=== PATIENT | male | born 1980 | race Caucasian/White ===

== ENCOUNTER 2020-02-18 11:57 | Observation (INO) | payer SELFPAY ==
[~2020-02-18] VITALS: Ht 175.3 cm; Wt 90.7 kg
[~2020-02-18 11:57] MED LIST: ATOR40TA PO; OMEP20ER PO
[2020-02-18 12:55] LABS: LYMPHOCYTES ABSOLUTE AUTO 0.57 K/mm3 (0.84-5.20); RDW Standard Deviation 36.9 fL (35.1-46.3)
[2020-02-18 13:05] LABS: BASOPHILS ABSOLUTE AUTO 0.03 K/mm3 (0.00-0.23); BASOPHILS PERCENT AUTO 0 % (0-2); EOSINOPHILS PERCENT AUTO 0 % (0-6); Hematocrit 42.1 % (37.0-53.0); Hemoglobin 14.8 g/dL (13.5-17.5); IMMATURE GRAN ABSOLUTE AUTO 0.05 K/mm3 (0.00-0.10); IMMATURE GRAN PERCENT AUTO 1 % (0-1); LYMPHOCYTES PERCENT AUTO 8 % (21-46); MONOCYTES PERCENT AUTO 7 % (4-13); Mean Corpuscular HGB Conc 35.2 g/dL (31.5-36.5); Mean Corpuscular Volume 91 fL (80-100); NEUTROPHILS ABSOLUTE AUTO 6.34 K/mm3 (1.96-9.15); NEUTROPHILS PERCENT AUTO 85 % (41-73); Red Blood Cell Count 4.63 M/mm3 (4.30-5.90); White Blood Cell Count 7.49 K/mm3 (4.00-11.30)
[2020-02-18 13:06] LABS: Alanine Aminotransfer (ALT/SGP 49 U/L (12-78); Albumin, Blood 3.9 g/dL (3.4-5.0); Albumin/Globulin Ratio 0.9 (0.8-1.8); Alk Phos 102 U/L (50-136); Anion Gap 10 mmol/L (6-16); Aspartate Aminotrans (AST/SGOT 35 U/L (12-37); Bilirubin, Total 0.8 mg/dL (0.1-1.0); Blood Urea Nitrogen 19 mg/dL (8-24); Bun/Creatinine Ratio 14.8 (12.0-20.0); CO2, Blood 23 mmol/L (21-32); Calcium, Blood 9.3 mg/dL (8.5-10.1); Chloride, Blood 98 mmol/L (98-108); Creatinine, Blood 1.28 mg/dL (0.60-1.20); Globulin, Blood 4.2 g/dL (2.2-4.0); Glomerular Filtration Rate >60 (60-); Glucose, Blood 124 mg/dL (70-99); Potassium, Blood 3.7 mmol/L (3.5-5.5); Sodium, Blood 131 mmol/L (136-145); Total Protein, Blood 8.1 g/dL (6.4-8.2)
[2020-02-18 13:08] LABS: Mean Platelet Volume 10.7 fL (9.1-12.4); Platelet Count 172 K/mm3 (150-400)
[2020-02-18 13:52] LABS: Source, Urine Voided
[2020-02-18 13:54] LABS: Appearance, Urine Clear (Clear); Bilirubin, Urine Neg (Neg); Blood, Urine 2+ (Neg); Color, Urine Yellow (P-Yellow); Glucose Qualitative, Urine Neg (Neg); Ketones, Urine 1+ (Neg); Leukocyte Esterase, Urine Neg (Neg); Nitrite, Urine Neg (Neg); Protein, Urine Neg (Neg); Urobilinogen, Urine NORM (Normal)
[2020-02-18 14:03] LABS: Red Blood Cells, Urine 0-2 /hpf (0-2); Squamous Epithelial Cells Not Seen /hpf (Few); White Blood Cells, Urine 0-2 /hpf (0-5)
[2020-02-18 14:04] LABS: Bacteria Rare /hpf
--- NOTE | 2020-02-18 18:42 | NUR ---
ADMISSION: REPORT RECEIVED FROM ED RN. PT TO ROOM AT ABOUT 1800. UPON ASSESSMENT PT IS A/O, VSS, ABLE TO AMBULATE IN ROOM. IV ABX INFUSION COMPLETE AND PT SALINE LOCKED. PT REPORTS PAIN AT RECTUM, MEDICATION GIVEN. PT IS REG DIET NOW, REFUSED NEED FOR DINNER. EXPLAINED TO PT THAT HE WILL BE NPO AT 0000. PT ORIENTED TO ROOM, CALL LIGHT. WILL CTM AND PASS REPORT TO NOC RN.
[2020-02-19 03:03] LABS: Influenza A, PCR Negative (NEGATIVE); Influenza B, PCR Negative (NEGATIVE); Resp Syncytial Virus, PCR Negative (NEGATIVE); SARS-Cov-2 (COVID-19) PCR, MMC Negative (NEGATIVE)
--- NOTE | 2020-02-19 06:08 | NUR ---
SHIFT SUMMARY LYING SUPINE WITH EYES CLOSED, HAS REST WELL. NO ACUTE CHANGES NOTED. HAS BEEN NPO SINCE MD FOR SX TODAY. PAIN IS NOW MANAGED WITH TYLENOL. SPIKED FEVER ONCE THIS SHIFT. HAS BEEN INDEPENDANT IN THE ROOM. DENIES PAIN, DISCOMFORT OR FURTHER NEEDS AT THIS TIME. SAFETY MEASURES IN PLACE. WILL CONTINUE TO MONITOR AND GIVE HANDOFF TO ONCOMING SHIFT USING SBAR.
--- NOTE | 2020-02-19 08:41 | NUR ---
PERMISSION FOR CARE THIS PATIENT GAVE GUILLERMO DARBY, STUDENT NURSE, PERMISSION TO PROVIDE CARE FOR HIM ON 02/19/2020.
--- NOTE | 2020-02-19 09:15 | NUR ---
PT TO DAY SURGERY AT THIS TIME.
[2020-02-19 09:24] LABS: Hematocrit 40.8 % (37.0-53.0); Hemoglobin 14.1 g/dL (13.5-17.5); Mean Corpuscular HGB 32.2 pg (26.0-34.0); Mean Corpuscular HGB Conc 34.6 g/dL (31.5-36.5); Mean Corpuscular Volume 93 fL (80-100); Mean Platelet Volume 10.6 fL (9.1-12.4); Platelet Count 181 K/mm3 (150-400); RDW Coefficient Variation 11.2 % (11.7-14.2); RDW Standard Deviation 38.6 fL (35.1-46.3); Red Blood Cell Count 4.38 M/mm3 (4.30-5.90); White Blood Cell Count 8.68 K/mm3 (4.00-11.30)
--- NOTE | 2020-02-19 09:24 | NUR ---
History, Chart, Medications and Allergies reviewed before start of procedure. Patient confirms NPO status and agrees with scheduled surgery.
--- NOTE | 2020-02-19 09:28 | NUR ---
Lungs clear T/O to Auscultation.
[2020-02-19 09:53] LABS: Anion Gap 6 mmol/L (6-16); Blood Urea Nitrogen 13 mg/dL (8-24); CO2, Blood 27 mmol/L (21-32); Calcium, Blood 9.1 mg/dL (8.5-10.1); Chloride, Blood 103 mmol/L (98-108); Creatinine, Blood 0.93 mg/dL (0.60-1.20); Glomerular Filtration Rate >60 (60-); Glucose, Blood 110 mg/dL (70-99); Potassium, Blood 3.8 mmol/L (3.5-5.5); Sodium, Blood 136 mmol/L (136-145)
[2020-02-19] MEDS ORDERED: Percocet 5-3251 EACH PO (13:39)
--- NOTE | 2020-02-19 15:11 | NUR ---
DISCHARGE PT EDUCATED ON AND RECEIVED PRINTED DISCHARGE INSTRUCTIONS AND VERBALIZED AN UNDERSTANDING. HARD RX FOR PERCOCET GIVEN TO PT. IV DC'D. DRESSING SUPPLIES GIVEN TO PT. PT REPORTS PAIN TOLERABLE, INDEP TO BRP, NOAH REG DIET, POST OP VSS. PT GATHERING PERSONAL BELONGINGS AND SIGNIFICANT OTHER AT BEDSIDE TO TRANSPORT PT HOME. PT WILL BE ESCORTED OUT VIA W/C.
[2020-02-19] MEDS ORDERED: DOCU100 PO (15:16)
[2020-02-19] MEDS ORDERED: ACET325 PO (15:16)
== END 2020-02-19 15:17 | disposition home or self-care (01) ==
LOC: ER 11:57 → SURS 11:58 → ER 17:37 → SURS 17:37
PROVIDERS: Emergency Medicine; Surgery; ADMIT Surgery
DX: K61.1 Rectal abscess (principal); K61.31 Horseshoe abscess; E87.1 Hypo-osmolality and hyponatremia; Z23 Encounter for immunization; Z79.899 Other long term (current) drug therapy; Z20.828 Contact with and (suspected) exposure to other viral communicable diseases
CPT/HCPCS: 0241U; 36415; 74177; 80048; 80053; 81001; 85025; 85027; 96361-59; 96374-59; 96375-59; 99285-25; A9270; J0171; J0295; J1100; J1170; J1200; J1885; J2250; J2405; J2543; J2704; J3010; J7120; Q9967